=== PATIENT | female | born 1970 | race Caucasian/White ===

== ENCOUNTER → 2017-08-13 | Outpatient (REF) ==
[~2017-08-13] MED LIST: MOTRIN 600600 MG/TAB PO
== END ==
LOC: ZLAB.WCH 14:51
DX: Z01.89 Encounter for other specified special examinations (principal)

== ENCOUNTER → 2018-02-08 | Outpatient (CLI) | payer BC | LOC: SUN.DIA 10:42 | DX: E11.9 Type 2 diabetes mellitus without complications (principal); E66.9 Obesity, unspecified; Z68.35 Body mass index [BMI] 35.0-35.9, adult; Z71.3 Dietary counseling and surveillance; F17.210 Nicotine dependence, cigarettes, uncomplicated | CPT/HCPCS: G0108 ==

== ENCOUNTER → 2018-02-15 | Outpatient (CLI) | payer BC | LOC: SUN.DIA 11:38 | DX: E11.9 Type 2 diabetes mellitus without complications (principal); E66.9 Obesity, unspecified; Z68.35 Body mass index [BMI] 35.0-35.9, adult; Z71.3 Dietary counseling and surveillance; F17.210 Nicotine dependence, cigarettes, uncomplicated | CPT/HCPCS: G0108 ==

== ENCOUNTER → 2018-02-16 | Outpatient (CLI) | payer BC | LOC: SUN.DIA 16:21 | DX: E11.9 Type 2 diabetes mellitus without complications (principal); E66.9 Obesity, unspecified; Z71.3 Dietary counseling and surveillance; F17.210 Nicotine dependence, cigarettes, uncomplicated | CPT/HCPCS: G0109 ==

== ENCOUNTER → 2018-02-23 | Outpatient (CLI) | payer BC | LOC: SUN.DIA 15:16 | DX: E11.9 Type 2 diabetes mellitus without complications (principal); E66.9 Obesity, unspecified; Z71.3 Dietary counseling and surveillance; F17.210 Nicotine dependence, cigarettes, uncomplicated | CPT/HCPCS: G0109 ==

== ENCOUNTER → 2018-03-09 | Outpatient (CLI) | payer BC | LOC: SUN.DIA 03-02 13:23 | DX: E11.9 Type 2 diabetes mellitus without complications (principal); E66.9 Obesity, unspecified; Z71.3 Dietary counseling and surveillance; F17.210 Nicotine dependence, cigarettes, uncomplicated | CPT/HCPCS: G0109 ==